=== PATIENT | female | born 2000 | race Caucasian/White ===

== ENCOUNTER 2025-02-26 09:24 | Emergency (ER) | payer OTHER ==
[~2025-02-26] VITALS: Ht 170.2 cm; Wt 66.9 kg
[2025-02-26 10:02] VITALS: TEMP 36.9; O2SAT 98
[2025-02-26] MEDS ORDERED: AMOX-494 MT (10:50)
[2025-02-26 11:11] VITALS: BP 118/64; PULSE 77; RESP 12; O2SAT 100
== END 2025-02-26 11:15 | disposition home or self-care (01) ==
LOC: EDBD 09:24 → ER 09:24
DX: H66.92 Otitis media, unspecified, left ear (principal)
CPT/HCPCS: 99283